=== PATIENT | male | born 1955 | race Caucasian/White ===

== ENCOUNTER 2021-08-13 02:42 | Day surgery (SDC) | payer OTHER, SELFPAY ==
[2021-08-02 14:58] VITALS: BMI 37.0
[2021-08-13 08:16] VITALS: BP 147/83; PULSE 71; RESP 20; TEMP 36.8; O2SAT 97
[2021-08-13] MEDS: LACTATED RINGERS 1,000 ML 150 ML IV CONT (08:21)
[2021-08-13 08:29] LABS: Glucose Point of Care 108 mg/dl (65-105)
--- NOTE | 2021-08-13 09:30 | WPDANESEPPF ---
Anes - Initial Pre Proc Eval Procedure: Operation Date: 08/13/21 09:30 Proposed Procedures p Screening Colonoscopy - Francisco Delaney MD Date/Time: 08/13/21 09:30 Surgeon: Francisco Delaney MD Pre Op Diagnosis: hx of colon polyps Patient Data Age: 66 Gender: M Height: 1.6 m Weight: 94.7 kg Last Vital Signs Temp 98.3 F 08/13/21 08:16 Pulse 71 08/13/21 08:16 Resp 20 08/13/21 08:16 BP 147/83 H 08/13/21 08:16 Pulse Ox 97 08/13/21 08:16 Allergies Allergy/AdvReac Type Severity Reaction Status Date / Time codeine Allergy Mild Itching Verified 08/13/21 08:14 ibuprofen Allergy Mild Hives Verified 08/13/21 08:14 Home Medications Medication Instructions Recorded Confirmed Type fenofibrate 160 mg tablet 160 mg PO DAILY #30 tablet 10/21/19 08/13/21 Rx Ocuvite Eye Health 1 tablet PO DAILY 08/02/21 08/13/21 History alfalfa [[place], Natural] 650 mg PO DAILY 08/02/21 08/13/21 History ascorbic acid (vitamin C) 1 tablet PO DAILY 08/02/21 08/13/21 History blood-glucose meter,continuous 08/02/21 08/02/21 History [Dexcom G6 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 FOR[facility] Past Medical History Medical History (Updated 08/13/21 @ 09:27 by Darrin Vieira MD) COPD (chronic obstructive pulmonary disease) RASHAD (obstructive sleep apnea) Family History Family History Mother Family history of tuberculosis Family history of Alzheimer's disease Father Family history of Alzheimer's disease Sibling Diabetes mellitus Family history of alcoholism Social History Social History Smoking packs per day: 1 Smoking cigarettes per day: 20.0 Years smoked: 40 Smoking pack-years: 40.00 Smoking status: Former smoker Tobacco type: cigarettes Smoking end date: 11/16/12 Alcohol intake: current Alcohol use details: socially Substance use: never Substance use type: does not use Living arrangements: with family Spiritual care concerns: No Anes - Eval Final PreProcedure Day of Procedure 08/13/21 09:30 Patient weight: obese Heart: regular rate and rhythm Lungs: clear to auscultation Airway: Mallampati scale Neurological: alert and oriented Last oral intake: >/= 8 hours ASA classification: III Emergent: no Anesthetic plan: proceed Anesthesia type and monitoring: general GIVS and standard monitoring Results Review: All pre-operative results and documents have been reviewed as part of the pre-operative evaluation. Informed Consent: The patient's anesthetic plan and its attendant risks and benefits were discussed with the patient/family/POA. Questions were solicited and answers provided to the satisfaction of the patient/family/POA.
--- NOTE | 2021-08-13 09:31 | PM.HPGS ---
History of Present Illness History of Present Illness Consent: Risks, benefits, and alternatives have been discussed and questions answered. Patient agrees to proceed with procedure. Chief complaint: hx of colon polyps Narrative: Riley Herzog is a 66 year old male with last colonoscopy 10 years ago. Review of Systems Constitutional: Constitutional: Denies headache(s) and Denies weakness Eyes: Eyes: Denies blurry vision ENT: Reports Normal hearing present, Denies headache(s) and Denies neck pain Cardiovascular: Cardiovascular: Denies chest pain and Denies dyspnea Respiratory: Respiratory: Denies dyspnea Gastrointestinal: Gastrointestinal: Reports no additional gastrointestinal complaints Genitourinary: Genitourinary: Denies dysuria Musculoskeletal: Musculoskeletal: Denies neck pain Integumentary/Breasts: Skin/Breast: Denies dry skin Neurologic: Reports Normal hearing present, Denies headache(s) and Denies weakness Psychiatric: Psychiatric: Denies anxiety Endocrine: Endocrine: Denies change in body appearance Hematologic/Lymphatic: Hematologic/Lymphatic: Denies easy bleeding Allergic/Immunologic: Allergic/Immunologic: Denies urticaria PMFSH Past Medical History Medical History (Updated 08/13/21 @ 09:32 by Francisco Delaney MD) Colon cancer screening COPD (chronic obstructive pulmonary disease) RASHAD (obstructive sleep apnea) Family History Family History Mother Family history of tuberculosis Family history of Alzheimer's disease Father Family history of Alzheimer's disease Sibling Diabetes mellitus Family history of alcoholism Social History Social History Smoking packs per day: 1 Smoking cigarettes per day: 20.0 Years smoked: 40 Smoking pack-years: 40.00 Smoking status: Former smoker Tobacco type: cigarettes Smoking end date: 11/16/12 Alcohol intake: current Alcohol use details: socially Substance use: never Substance use type: does not use Living arrangements: with family Spiritual care concerns: No Meds Home Medications and Allergies Home Medications Medication Instructions Recorded Confirmed Type fenofibrate 160 mg tablet 160 mg PO DAILY #30 tablet 10/21/19 08/13/21 Rx Ocuvite Eye Health 1 tablet PO DAILY 08/02/21 08/13/21 History alfalfa [[place], Natural] 650 mg PO DAILY 08/02/21 08/13/21 History ascorbic acid (vitamin C) 1 tablet PO DAILY 08/02/21 08/13/21 History blood-glucose meter,continuous 08/02/21 08/02/21 History [Dexcom G6 Super[employer] [address]] blood-glucose sensor [Dexcom G6 08/02/21 08/02/21 History Sensor] blood-glucose transmitter [Dexcom 08/02/21 08/02/21 History G6 Transmitter] Allergies Allergy/AdvReac Type Severity Reaction Status Date / Time codeine Allergy Mild Itching Verified 08/13/21 08:14 ibuprofen Allergy Mild Hives Verified 08/13/21 08:14 Vital Signs Vital Signs - 24 hr 08/13/21 08:16 Temperature 98.3 F Pulse Rate 71 Respiratory Rate 20 Blood Pressure 147/83 H Pulse Oximetry 97 Exam Const: General: comfortable and no acute distress HENMT: General nose exam: Normal nares present Eyes: General: appearance normal, both eyes and all related structures Neck: Neck: no JVD Resp: Auscultation: clear to auscultation bilaterally Cardio: Rate: regular rate Rhythm: regular rhythm GI: Inspection: non-distended GI Palp: Yes Soft to palpation Skin: General skin exam: normal color Neuro: General: gait normal Speech: normal speech Extrem: General: normal to inspection Psych: Mental Status: mental status grossly normal Assessment and Plan Assessment and plan (1) Colon cancer screening: Code(s): Z12.11 - Encounter for screening for malignant neoplasm of colon Status: Acute Assessment and Plan: colonoscopy
[2021-08-13 09:49] VITALS: BP 109/69; PULSE 70; RESP 18; O2SAT 95
[2021-08-13 09:59] VITALS: BP 103/68; PULSE 69; RESP 20; O2SAT 96
== END 2021-08-13 10:22 | disposition home or self-care (01) ==
PROVIDERS: PCP Student in an Organized Health Care Education/Training Program; Visit Provider Internal Medicine Gastroenterology
PROC: 0DJD8ZZ Inspection of Lower Intestinal Tract, Via Natural or Artificial Opening Endoscopic (ICD-10-PCS; CPT 45378; principal; 2021-08-13 09:30)
DX: Z12.11 Encounter for screening for malignant neoplasm of colon (principal); D12.3 Benign neoplasm of transverse colon; K57.30 Diverticulosis of large intestine without perforation or abscess without bleeding; K64.8 Other hemorrhoids; J44.9 Chronic obstructive pulmonary disease, unspecified; G47.33 Obstructive sleep apnea (adult) (pediatric); Z87.891 Personal history of nicotine dependence; Z79.899 Other long term (current) drug therapy; E66.9 Obesity, unspecified; Z68.37 Body mass index [BMI] 37.0-37.9, adult
CPT/HCPCS: 45385; 82948; 88305; J2704; J7120

== ENCOUNTER 2022-02-13 10:49 | Outpatient (CLI) | payer MEDICARE, SELFPAY ==
--- NOTE | ~2022-02-13 | US_ITS ---
EXAMINATION: US aorta [facility] scr[facility] DATE: 02/13/2022 12:00 INDICATION: Abdominal aortic aneurysm screening with risk factors of diabetes, obesity, prior smoking and hypercholesterolemia. TECHNIQUE: Grayscale, color Doppler, and pulsed Doppler images of the aorta and common iliac arteries were obtained. COMPARISON: None. FINDINGS: The proximal aorta measures 2.7 cm. The mid aorta measures 2.0 cm. The distal aorta measures 1.7 cm. The right common iliac artery measures 8 mm. The left common iliac artery measures 10 mm. IMPRESSION: 1. Normal caliber abdominal aorta. Reviewed, dictated and finalized at location A.
== END 2022-02-13 10:50 | disposition home or self-care (01) ==
PROVIDERS: PCP Student in an Organized Health Care Education/Training Program; Visit Provider Student in an Organized Health Care Education/Training Program
DX: Z13.6 Encounter for screening for cardiovascular disorders (principal)
CPT/HCPCS: 76706

== ENCOUNTER 2023-07-14 13:55 | Outpatient (CLI) | payer MEDICARE, SELFPAY ==
--- NOTE | 2023-07-15 06:36 | WPDSIXMINUTE ---
Six Minute Walk Procedure Procedure Performed Pulmonary Stress Test (6 min walk) Six Minute Walk Six Minute Walk: This is a 6 minute walk test. The test was performed and interpreted in accordance with the 2014 ERS/ATS task force guidelines. Findings: The patient's resting room air oxygen saturation measured by pulse oximetry was 98% and heart rate was 74 bpm. Patient ambulated for 411 meters and oxygen saturation remained 94 to 97%. Heart rate at the end of the study was 105 bpm. The patient did not qualify for supplemental oxygen at rest or with ambulation. There are no prior studies for comparison.
--- NOTE | 2023-07-15 06:37 | P.PCNPFT_ITS ---
PFT Procedure Performed PFT Procedure Performed Spirometry with Pre/Post Bronchodilator Plethysmography (Lung Vol) Diffusing Cap (DLCO) Flow Vol Loop PFT Interpretation This is a pulmonary function test with pre and post-bronchodilator spirometry, plethysmography and diffusing capacity. The test was performed and results interpreted in accordance with the 2019 and 2005 ATS/ERS Task Force guidelines respectively using the Global Lung Function Initiative-2012 reference equations. Patient demonstrated good effort and cooperation. Reproducibility criteria were met. The quality of the pre bronchodilator spirometry maneuver was Grade A and post bronchodilator spirometry maneuver was Grade A. Findings: Spirometry: There is decreased maximal expiratory airflow at all lung volumes with a concave expiratory flow tracing. The contour the inspiratory flow tracing is normal. The pre bronchodilator FVC is 3.32 L, 97% predicted. The pre bronchodilator FEV1 is 1.60 L, 60% predicted. The pre bronchodilator FEV1: FVC ratio is 48%. The post bronchodilator FVC is 3.57 L, representing a 7% increase. The post bronchodilator FEV1 is 1.88 L, representing an 18% increase. The post bronchodilator FEV1: FVC ratio is 53%. Plethysmography: The total lung capacity is 6.17 L, 110% predicted. The functi onal residual capacity is 3.76 L, 132% predicted. The residual volume is 2.64 L, 133% predicted. Diffusing capacity: The diffusing capacity unadjusted for hemoglobin and carboxyhemoglobin is 15.7, 65% predicted. The diffusing capacity adjusted for alveolar volume is 3.50, 79% predicted. In comparison to previous pulmonary function testing on 07/30/2018 the post bronchodilator FVC is unchanged from 3.15 L to 3.57 L. The post bronchodilator FEV1 is unchanged from 1.99 L to 1.88 L. The total lung capacity is unchanged from 6.42 L to 6.17 L. The functional residual capacity is unchanged from 3.75 L to 3.76 L. The residual volume is unchanged from 2.95 L to 2.64 L. The diffusing capacity unadjusted for hemoglobin and carboxyhemoglobin is unchanged from 16.1 to 15.7. The diffusing capacity adjusted for alveolar volume is unchanged from 3.88 to 3.50. Impression: There is a moderate obstructive abnormality with significant improvement after inhaling a single dose of albuterol. The lung volumes are normal. The diffusing capacity unadjusted for hemoglobin and carboxyhemoglobin is mildly decreased and normalizes when adjusted for alveolar volume. In comparison to previous pulmonary function testing on 07/30/2018 there has been no significant change in the FVC, FEV1, total lung capacity, functional residual capacity, residual volume or diffusing capacity. Clinical correlation is recommended.
== END 2023-07-14 13:56 | disposition home or self-care (01) ==
PROVIDERS: PCP Student in an Organized Health Care Education/Training Program; Visit Provider Internal Medicine Pulmonary Disease
DX: J44.9 Chronic obstructive pulmonary disease, unspecified (principal)
CPT/HCPCS: 94060; 94618; 94726; 94729

== ENCOUNTER → 2024-04-18 15:31 | Outpatient (REF) | payer MEDICARE, SELFPAY | LOC: ANHLAB 15:31 | PROVIDERS: PCP Student in an Organized Health Care Education/Training Program; Visit Provider Plastic Surgery | DX: L72.0 Epidermal cyst (principal) | CPT/HCPCS: 88305 ==

== ENCOUNTER 2024-07-22 15:12 | Outpatient (CLI) | payer MEDICARE, SELFPAY ==
--- NOTE | ~2024-07-22 | CT_ITS ---
EXAMINATION:CT diagnostic chest wo con DATE: 07/22/2024 15:35 INDICATION: Malignant neoplasm of lower lobe of right lung. TECHNIQUE: Computed tomography (CT) of the chest was performed without intravenous contrast. Automate d exposure control and iterative reconstruction technique were employed. The dose-length product (DLP ) was 562.80 mGy-cm. COMPARISON: PET/CT 08/05/2018 FINDINGS: There are changes of right lower lobectomy. There is mild emphysema. No pleural effusion. T he heart size is normal. There are coronary artery calcifications. No pericardial effusion. There is mild thoracic spondylosis. IMPRESSION: 1. Right lower lobectomy. No evidence of metastatic disease. Reviewed, dictated and finalized at location A.
== END 2024-07-22 15:13 | disposition home or self-care (01) ==
LOC: MICIMG 15:13
PROVIDERS: PCP Student in an Organized Health Care Education/Training Program; Visit Provider Student in an Organized Health Care Education/Training Program
DX: C34.31 Malignant neoplasm of lower lobe, right bronchus or lung (principal); Z90.2 Acquired absence of lung [part of]
CPT/HCPCS: 71250